=== PATIENT | male | born 1985 | race Caucasian/White ===

== ENCOUNTER 2020-11-22 11:00 | Emergency (ER) | payer BC, SELFPAY ==
[2020-11-22 11:05] VITALS: BP 128/86; PULSE 55; RESP 14; TEMP 36.4; O2SAT 98; BMI 29.8
--- NOTE | 2020-11-22 11:27 | HMH.EDUTC ---
[facility] [place] Disposition Clinical Impression: Close exposure to COVID-19 virus Disposition: Home, Self-Care Condition on Discharge: Good Instructions: DI for COVID-19 (Suspected or Confirmed ), Coronavirus Disease 2019, Preventing the Spread of Coronavirus Discharge Instructions Additional Instructions: *Monitor Temp, Over the counter Motrin or Tylenol as directed/as needed Tylenol every 4 hours and Motrin every 6 hours (as long as your family doctor has told you that you can take it) for fever or pain. and straight to ER if unable to lower temp less than 101.0 after medication given Follow up IMMEDIATELY for new or worsening symptoms or no Noticeable improvement over the next 48-72 hours. 911 for difficulty breathing or swallowing You were tested for today for COVID19 your test result should be back in the next 24-48 hours, you may call to the [facility] to see if your test results are back in the next 48 hours [phone] [facility] hours are 9am-9pm You was given a handout with instructions for Self Quarantine and Self isolation for while you wait on test results and what to do if they are positive If you are positive the Health Dept will be contacting you also Referrals: Martin Dobbins [Primary Care Provider] - As needed Forms: Work/School Release Time of Disposition: 11:28 Medical Decision Making - Justyn Inquiry Pt receiving controlled substance: No Justyn was queried for this patient: No Vital Signs: 11/22/20 11:05 Temperature 97.6 F Temperature Source Oral Pulse Rate [Left Brachial] 55 L Respiratory Rate 14 Blood Pressure [Left Arm] 128/86 Blood Pressure Mean [Left Arm] 100 Blood Pressure Source [Left Arm] Automatic Cuff Blood Pressure Position [Left Arm] Sitting 02 Sat by Pulse Oximetry 98 Oxygen Delivery Method Room Air Orders (Tests/Meds): ORDERS Category Date Time Status Covid-19 Nasal PCR Sendout P&C Stat Lab 11/22/20 11:21 Ordered [facility] [place] HPI - General Stated complaint: covid test Time Seen by Provider: 11/22/20 11:27 Mode of Arrival: Ambulatory Source of Information: Patient Limitations: No Limitations Description of Symptoms (Recalled from Triage Doc. by RN): COVID TEST D/T EXPOSURE. STATES HIS TESTED POSITIVE THIS MORNING HEENT Symptoms (Recalled from RN notes): No Resp Symptoms (Recalled from RN notes): No Skin Symptoms (Recalled from RN notes): No MS Symptoms (Recalled from RN notes): No Functional Status (Recalled from RN notes): WNL - History of Present Illness Provider Complaint: Patient state that his tested positive for COVID this morning and he has been in close contact with her States that his work wanted him to come in and get tested States that he is not having any symptoms at this time - Related Data Home Medications Medication Instructions Recorded Confirmed Fluticasone Propionate [Flonase 1 spray INTRANASAL QDAY 09/02/19 09/02/19 Allergy Relief NS] cephALEXin [Keflex 500mg Cap] 500 mg PO Q12H 09/02/19 09/02/19 Previous Rx's Medication Instructions Recorded Guaifenesin/Dextromethorphan 1 each PO Q12H 5 Days #10 09/02/19 [Mucinex Dm ER 600-30 mg Tablet] tab.er.12h methylPREDNISolone [Medrol 4mg 4 mg PO DIRECTED #21 tab 09/02/19 tab] Allergies Allergy/AdvReac Type Severity Reaction Status Date / Time sulfamethoxazole Allergy Verified 08/31/19 15:28 [From Bactrim] trimethoprim [From Bactrim] Allergy Verified 08/31/19 15:28 - Worker's Comp Is this a Worker's Comp case?: No [facility] History - Hepatitis A Screen Drug use history?: No High risk sexual behaviors?: No History of sexually transmitted infection?: No Currently employed?: No Childcare worker?: No Do you have indoor plumbing?: Yes Do you have electricity?: Yes Attestation statement:: This patient has been screened for Hepatitis A risk factors. I have reviewed the patient's past medical history: Yes Medical History: Denies:: Diabetes Mellitus Type 1, Diabetes Elana
[2020-11-22 11:29] VITALS: BP 128/86; PULSE 55; RESP 14; TEMP 36.4; O2SAT 98
[2020-11-23 09:55] LABS: Covid-19 Nasal PCR Sendout P&C NEGATIVE
== END 2020-11-22 11:35 | disposition home or self-care (01) ==
PROVIDERS: Emergency Provider Nurse Practitioner; PCP Family Medicine
DX: Z20.822 Contact with and (suspected) exposure to COVID-19 (principal)
CPT/HCPCS: 99202; G0463; U0004

== ENCOUNTER 2020-11-27 14:05 | Emergency (ER) | payer BC, SELFPAY ==
[2020-11-27 14:40] VITALS: BP 119/76; PULSE 64; RESP 19; TEMP 36.6; O2SAT 98; BMI 29.1
--- NOTE | 2020-11-27 15:05 | HMH.EDUTC ---
[facility] [place] Disposition Clinical Impression: Encounter for laboratory testing for COVID-19 virus Disposition: Home, Self-Care Condition on Discharge: Good Instructions: DI for COVID-19 (Suspected or Confirmed ), Coronavirus Disease 2019, Preventing the Spread of Coronavirus Discharge Instructions Additional Instructions: You were tested for today for COVID19 your test result should be back in the next 24-48 hours, you may call to the [facility] to see if your test results are back in the next 48 hours [phone] [facility] hours are 9am-9pm You was given a handout with instructions for Self Quarantine and Self isolation for while you wait on test results and what to do if they are positive If you are positive the Health Dept will be contacting you also Referrals: Martin Dobbins [Primary Care Provider] - As needed Forms: Work/School Release Time of Disposition: 15:08 Medical Decision Making - Justyn Inquiry Pt receiving controlled substance: No Justyn was queried for this patient: No Vital Signs: 11/27/20 14:40 Temperature 97.8 F Temperature Source Oral Pulse Rate [Right Brachial] 64 Respiratory Rate 19 Blood Pressure [Right Arm] 119/76 Blood Pressure Mean [Right Arm] 90 Blood Pressure Source [Right Arm] Automatic Cuff Blood Pressure Position [Right Arm] Sitting 02 Sat by Pulse Oximetry 98 Oxygen Delivery Method Room Air Orders (Tests/Meds): ORDERS Category Date Time Status Covid-19 Nasal PCR ([facility]) Routine Lab 11/27/20 14:18 Ordered [facility] [place] HPI - General Stated complaint: covid test Time Seen by Provider: 11/27/20 15:06 Mode of Arrival: Ambulatory Source of Information: Patient Limitations: No Limitations Description of Symptoms (Recalled from Triage Doc. by RN): COVID TEST D/T EXPOSURE. DENIES SYMPTOMS HEENT Symptoms (Recalled from RN notes): No Resp Symptoms (Recalled from RN notes): No Skin Symptoms (Recalled from RN notes): No MS Symptoms (Recalled from RN notes): No Functional Status (Recalled from RN notes): WNL - History of Present Illness Provider Complaint: Patient states that he was exposed to someone that had COVID about a week ago and was tested and Health Dept recommended getting retested in 5 days if he was negative So he came back in today to get retested Still denies symptoms - Related Data Home Medications Medication Instructions Recorded Confirmed Fluticasone Propionate [Flonase 1 spray INTRANASAL QDAY 09/02/19 09/02/19 Allergy Relief NS] cephALEXin [Keflex 500mg Cap] 500 mg PO Q12H 09/02/19 09/02/19 Previous Rx's Medication Instructions Recorded Guaifenesin/Dextromethorphan 1 each PO Q12H 5 Days #10 09/02/19 [Mucinex Dm ER 600-30 mg Tablet] tab.er.12h methylPREDNISolone [Medrol 4mg 4 mg PO DIRECTED #21 tab 09/02/19 tab] Allergies Allergy/AdvReac Type Severity Reaction Status Date / Time sulfamethoxazole Allergy Verified 08/31/19 15:28 [From Bactrim] trimethoprim [From Bactrim] Allergy Verified 08/31/19 15:28 - Worker's Comp Is this a Worker's Comp case?: No [facility] History - Hepatitis A Screen Drug use history?: No High risk sexual behaviors?: No History of sexually transmitted infection?: No Currently employed?: No Childcare worker?: No Do you have indoor plumbing?: Yes Do you have electricity?: Yes Attestation statement:: This patient has been screened for Hepatitis A risk factors. I have reviewed the patient's past medical history: Yes Medical History: Denies:: Diabetes Mellitus Type 1, Diabetes Mellitus Type 2, Hyperlipidemia, Hypertension, Renal Disease Other Surgeries: Yes: No Previous Surgery Amputation: No Fractures: No - Social History Smoking Status: Never smoker Alcohol Intake: never Substance Use Type: denies use Occupational Status: other Housing: house Household Members: spouse Family Hx:: Cancer ROS Obtained: Yes All systems reviewed & no additional complaints, Yes Systems reviewed as appropriate & no additional
[2020-11-27 15:14] VITALS: BP 119/76; PULSE 64; RESP 19; TEMP 36.6; O2SAT 98
== END 2020-11-27 15:16 | disposition home or self-care (01) ==
PROVIDERS: Emergency Provider Nurse Practitioner; PCP Family Medicine
DX: Z20.822 Contact with and (suspected) exposure to COVID-19 (principal)
CPT/HCPCS: 99202; G0463; U0003

== ENCOUNTER 2020-12-03 09:43 | Emergency (ER) | payer BC, SELFPAY ==
[2020-12-03 09:55] VITALS: BP 129/89; PULSE 70; RESP 14; TEMP 37.1; O2SAT 97; BMI 29.1
--- NOTE | 2020-12-03 10:16 | HMH.EDUTC ---
[facility] [place] Disposition Clinical Impression: Close exposure to COVID-19 virus Disposition: Home, Self-Care Condition on Discharge: Good Instructions: Preventing the Spread of Coronavirus Discharge Instructions Additional Instructions: Drink plenty of fluids. Take tylenol for pain or fever. Return if you begin to have difficulty breathing. Follow up with your regular doctor. GO TO THE ER FOR ANY WORSENING SYMPTOMS Referrals: Martin Dobbins [Primary Care Provider] - Time of Disposition: :19 Medical Decision Making - Medical Records Medical records reviewed: No: I reviewed the patient's medical records. - Justyn Inquiry Pt receiving controlled substance: No Vital Signs: 12/03/20 09:55 12/03/20 10:28 Temperature 98.7 F 98.7 F Temperature Source Oral Pulse Rate 70 Pulse Rate [Right Brachial] 70 Respiratory Rate 14 14 Blood Pressure 129/89 Blood Pressure [Right Arm] 129/89 Blood Pressure Mean [Right Arm] 102 Blood Pressure Source [Right Arm] Automatic Cuff Blood Pressure Position [Right Arm] Sitting 02 Sat by Pulse Oximetry 97 Oxygen Delivery Method Room Air [facility] [place] HPI - General Stated complaint: covid test Time Seen by Provider: 12/03/20 10:16 Mode of Arrival: Ambulatory Source of Information: Patient Limitations: No Limitations Description of Symptoms (Recalled from Triage Doc. by RN): PATIENT NEEDS NEGATIVE COVID TEST TO RETURN TO WORK HEENT Symptoms (Recalled from RN notes): No Resp Symptoms (Recalled from RN notes): No Skin Symptoms (Recalled from RN notes): No MS Symptoms (Recalled from RN notes): No Functional Status (Recalled from RN notes): WNL - History of Present Illness Provider Complaint: He has been off work because his has had covid. He has never developed symptoms and it is time for him to go back to work. His employer wants him to have a covid test first. - Related Data Home Medications Medication Instructions Recorded Confirmed Fluticasone Propionate [Flonase 1 spray INTRANASAL QDAY 09/02/19 09/02/19 Allergy Relief NS] cephALEXin [Keflex 500mg Cap] 500 mg PO Q12H 09/02/19 09/02/19 Previous Rx's Medication Instructions Recorded Guaifenesin/Dextromethorphan 1 each PO Q12H 5 Days #10 09/02/19 [Mucinex Dm ER 600-30 mg Tablet] tab.er.12h methylPREDNISolone [Medrol 4mg 4 mg PO DIRECTED #21 tab 09/02/19 tab] Allergies Allergy/AdvReac Type Severity Reaction Status Date / Time sulfamethoxazole Allergy Verified 08/31/19 15:28 [From Bactrim] trimethoprim [From Bactrim] Allergy Verified 08/31/19 15:28 - Worker's Comp Is this a Worker's Comp case?: No H History - Hepatitis A Screen Drug use history?: No High risk sexual behaviors?: No History of sexually transmitted infection?: No Currently employed?: No Childcare worker?: No Do you have indoor plumbing?: Yes Do you have electricity?: Yes Attestation statement:: This patient has been screened for Hepatitis A risk factors. I have reviewed the patient's past medical history: Yes Medical History: Denies:: Diabetes Mellitus Type 1, Diabetes Mellitus Type 2, Hyperlipidemia, Hypertension, Renal Disease Other Surgeries: Yes: No Previous Surgery Amputation: No Fractures: No - Social History Smoking Status: Never smoker Alcohol Intake: never Substance Use Type: denies use Occupational Status: other Housing: house Household Members: spouse Family Hx:: Cancer ROS Obtained: Yes All systems reviewed & no additional complaints - Constitutional Constitutional: Reports system reviewed and no additional complaints, except as docu - Eyes Eyes: Reports system reviewed and no additional complaints, except as docu - ENT Ears, Nose, Mouth, and Throat: Reports system reviewed and no additional complaints, except as docu - Cardiovascular Cardiovascular: Reports system reviewed and no additional complaints, except as docu - Respiratory Respiratory: Reports system re
[2020-12-03 10:28] VITALS: BP 129/89; PULSE 70; RESP 14; TEMP 37.1; O2SAT 97
== END 2020-12-03 10:30 | disposition home or self-care (01) ==
PROVIDERS: Emergency Provider Nurse Practitioner Family; PCP Family Medicine
DX: Z20.822 Contact with and (suspected) exposure to COVID-19 (principal)
CPT/HCPCS: 99202; G0463; U0003

== ENCOUNTER 2022-10-20 19:21 | Emergency (ER) | payer SELFPAY ==
--- NOTE | 2022-10-20 19:25 | EXP.UTC ---
Discharge Plan Disposition Patient Disposition: Home, Self-Care Condition: Good Prescriptions Prescriptions: New prednisone [prednisone] 20 mg tablet 20 mg PO BID 5 Days Qty: 10 0RF pseudoephedrine HCl [12 Hour Decongestant] 120 mg Tablet Extended Release 120 mg PO Q12H Qty: 20 0RF amoxicillin-pot clavulanate 875-125 mg Tablet 1 tab PO Q12H Qty: 20 0RF No Action cephalexin 500 MG capsule 500 mg PO Q12H fluticasone propionate 9.9 ML spray,suspension 1 spray intranasal QDAY Rx Instructions: administer into each nostril methylprednisolone 4 MG tablet 4 mg PO DIRECTED Qty: 21 0RF Rx Instructions: Take as directed on package instructions dextromethorphan-guaifenesin 1 EACH tablet extended release 12 hr 1 each PO Q12H 5 Days Qty: 10 0RF Rx Instructions: Maker sure you are drinking plenty of water (Fluids) with this medication Referrals Follow up/Referrals: Provider,Referral, MD [Primary Care Provider] - See instructions Clinical Impressions Clinical Impression: Sinusitis Instructions Patient Instructions: DI for Sinusitis Discharge ED Provider: Violetta Fisher [facility] [place] HPI General Stated complaint: pressure in eyes, sinsus, HERBERT Time Seen by Provider: 10/20/22 19:59 History of Present Illness Provider Complaint: Sinus presssure, headache, pressure behind eyes, scratchy throat, cough X 4 days. No fever. No vomiting or diarrhea. Onset (ago): day(s) (4) Relieving factors: none Exacerbating factors: none Associated symptoms: cough and headaches Treatments prior to arrival: other (Dayquil) Related Data Home Medications Medication Instructions Recorded Confirmed cephalexin 500 mg capsule 500 mg PO Q12H Infection 09/02/19 09/02/19 fluticasone propionate 50 1 spray intranasal QDAY Allergy 09/02/19 09/02/19 mcg/actuation nasal symptoms spray,suspension Previous Rx's Medication Instructions Recorded dextromethorphan-guaifenesin 30 1 each PO Q12H 5 days ##10 09/02/19 mg-600 mg tablet extended [id number] hr methylprednisolone 4 mg tablet 4 mg PO DIRECTED #21 tabs 09/02/19 amoxicillin 875 mg-potassium 1 tab PO Q12H #20 tabs 10/20/22 clavulanate 125 mg tablet prednisone 20 mg tablet 20 mg PO BID 5 days #10 tabs 10/20/22 pseudoephedrine HCl 120 mg 120 mg PO Q12H #20 tabs 10/20/22 tablet,extended release (12 Hour Decongestant ER) Allergies Allergy/AdvReac Type Severity Reaction Status Date / Time sulfamethoxazole Allergy Verified 08/31/19 15:28 [From Bactrim] trimethoprim [From Bactrim] Allergy Verified 08/31/19 15:28 [facility]: The information contained in this section may have been updated after the patient was seen, as this information can be updated by other users. Medical History (Updated 10/20/22 @ 20:06 by JEANE Bateman) Anxiety Depression Surgical History (Updated 10/20/22 @ 19:43 by Ramila Davis RN) History of tympanostomy tube placement Social History (Updated 10/20/22 @ 19:44 by Ramila Davis RN) Smoking Status: Never smoker alcohol intake: never substance use type: denies use current occupational status: other Travel in the last 8 weeks: None household members: spouse housing: house ROS Obtained: Yes All systems reviewed & no additional complaints except as documented Constitutional Constitutional: Reports headache(s) and Reports malaise ENT Ears, Nose, Mouth, and Throat: Reports headache(s), Reports sinus pain and Reports sinus pressure Neurologic Neurologic: Reports headache(s) Physical Exam General General appearance: alert and in no apparent distress Head Head exam: atraumatic, normocephalic and normal inspection Eye Eye exam: Present normal appearance, PERRL and EOMI ENT ENT exam: Present normal exam, normal oropharynx, mucous membranes moist, TM's normal bilaterally and normal external ear exam Expanded ENT Exam Nose
[2022-10-20 19:30] VITALS: BP 135/90; PULSE 70; RESP 17; TEMP 37; O2SAT 98; BMI 29.5
[2022-10-20 20:14] VITALS: BP 135/90; PULSE 70; RESP 17; TEMP 37; O2SAT 98
== END 2022-10-20 20:23 | disposition home or self-care (01) ==
PROVIDERS: Emergency Provider Physician Assistant
DX: J32.9 Chronic sinusitis, unspecified (principal)
CPT/HCPCS: 96372; 99212; G0463; J0696; J1040